=== PATIENT | female | born 1955 | race Caucasian/White ===

== ENCOUNTER → 2019-02-04 08:22 | Outpatient (CLI) | payer OTHER, SELFPAY ==
--- NOTE | 2019-02-04 08:24 | XR_ITS ---
PROCEDURE: XR DEXA AXIAL SKELETON CLINICAL HISTORY: screening COMPARISON: No exams were available for comparison FINDINGS: Lumbar spine (L1 through L4), BMD 1.363 T-score 1.5 Left hip (Total), BMD 0.816, T-score -1.5. IMPRESSION: Osteopenia. Dictated by: Dandre Holliday 02/07/2019 16:46 Electronically signed by Dandre Holliday in [place] 02/07/2019 16:46
== END ==
PROVIDERS: PCP Family Medicine; Visit Provider Obstetrics & Gynecology
DX: Z78.0 Asymptomatic menopausal state (principal)
CPT/HCPCS: 77080

== ENCOUNTER → 2019-12-24 08:17 | Outpatient (CLI) | payer OTHER, SELFPAY ==
--- NOTE | 2019-12-24 08:27 | XR_ITS ---
PROCEDURE: XR FOOT WT BEARING LT 3V CLINICAL INDICATION: Pain in toes bilaterally COMPARISON: CR XR FOOT WT BEARING RT 3V from 12/24/2019 FINDINGS: No fracture or dislocation. No lytic or blastic change. There is normal mineralization. There is mild hallux valgus slight soft tissue prominence over the 1st metatarsal head suggesting a bunion. The tarsal bones metatarsals and phalanges otherwise appear normal. The plantar arch is normal. There is a moderate-sized spur of the calcaneus at the insertion of the plantar tendon. IMPRESSION: Mild hallux valgus with bunion along with calcaneal spur Dictated by: Dr. Rafael Mccall MD 12/24/2019 08:48 Dr. Rafael Mccall MD in [place] 12/24/2019 08:48
--- NOTE | 2019-12-24 08:27 | XR_ITS ---
PROCEDURE: XR FOOT WT BEARING RT 3V CLINICAL INDICATION: PAIN pain in toes bilaterally COMPARISON: Left foot same date FINDINGS: No fracture or dislocation. No lytic or blastic change. There is normal mineralization. There is mild hallux valgus with mild soft tissue prominence over the 1st metatarsal head suggesting a bunion. The tarsal bones metatarsals and phalanges otherwise appear normal. The plantar arch is normal. There is a small spur of the calcaneus at the insertion of the plantar tendon and a tiny spur at the insertion of the Achilles tendon. IMPRESSION: Mild hallux valgus and calcaneal spurs as no Dictated by: Dr. Rafael Mccall MD 12/24/2019 08:50 Dr. Rafael Mccall MD in [place] 12/24/2019 08:50
== END ==
PROVIDERS: PCP Family Medicine; Visit Provider Podiatrist
DX: M21.611 Bunion of right foot (principal); M21.612 Bunion of left foot; M20.11 Hallux valgus (acquired), right foot; M77.41 Metatarsalgia, right foot
CPT/HCPCS: 73630

== ENCOUNTER → 2021-05-31 08:17 | Outpatient (CLI) | payer OTHER, SELFPAY | PROVIDERS: Visit Provider Nurse Practitioner | DX: Z20.822 Contact with and (suspected) exposure to COVID-19 (principal) | CPT/HCPCS: C9803; U0003; U0005 ==

== ENCOUNTER → 2021-10-27 11:14 | Outpatient (CLI) | payer OTHER, SELFPAY | PROVIDERS: PCP Family Medicine; Visit Provider Family Medicine | DX: U07.1 COVID-19 (principal) | CPT/HCPCS: C9803; U0003; U0005 ==

== ENCOUNTER → 2022-02-15 07:57 | Outpatient (CLI) | payer OTHER, SELFPAY ==
--- NOTE | 2022-02-15 08:08 | US_ITS ---
FINAL REPORT CLINICAL HISTORY: RUQ PAIN FINDINGS: Sonographic images of the right upper quadrant were obtained. The pancreas is partially obscured.The liver has an unremarkable appearance. There are gallstones and sludge within the gallbladder. The gallbladder wall is mildly thickened measuring 5 mm. There is no evidence of biliary ductal dilatation.The common duct measures 2 mm. Limited images of the right kidney are unremarkable. IMPRESSION: Gallstones and sludge within the gallbladder with wall thickening, cholecystitis not excluded. Nuclear medicine hepatobiliary scan may be helpful. Reviewed, Interpreted and Dictated by Artis Bañuelos III, MD Transcribed by Shannan Pinto Authenticated and . [facility]
== END ==
PROVIDERS: PCP Family Medicine; Visit Provider Nurse Practitioner Family
DX: R10.11 Right upper quadrant pain (principal)
CPT/HCPCS: 76705

== ENCOUNTER → 2022-03-10 08:05 | Outpatient (CLI) | payer OTHER, SELFPAY ==
[2022-03-10 08:49] LABS: Basophils % 0.6 % (0.1-2.0); Eosinophils # 0.1 K/mm3 (0.0-0.4); Eosinophils % 1.6 % (0.1-12.0); Hematocrit 45.9 % (37.0-47.0); Hemoglobin 14.9 g/dL (12.2-16.2); Lymphocytes # 2.4 K/mm3 (0.7-4.5); Lymphocytes % 34.7 % (10-50); Mean Corpuscular HGB Conc 32.5 g/dL (31.8-35.4); Mean Corpuscular Hemoglobin 34.1 pg (27.0-31.2); Mean Platelet Volume 8.1 fl (7.4-10.4); Monocytes # 0.3 K/mm3 (0.1-1.0); Monocytes % 4.6 % (1.7-9.3); Neutrophils % 58.5 % (37.0-80.0); Platelet Count 611 K/mm3 (142-424); Red Blood Count 4.38 M/mm3 (4.20-5.40); Red Cell Distribution Width 13.5 % (11.5-17.5); White Blood Count 6.8 K/mm3 (4.8-10.8)
[2022-03-10 09:12] LABS: Alanine Aminotransferase 48 U/L (12-78); Albumin Level 4.6 g/dl (3.5-5.0); Albumin/Globulin Ratio 1.6 (1.1-1.8); Alkaline Phosphatase 111 U/L (38-126); Amylase 66 U/L (30-110); Anion Gap 14.8 mEq/L (5-15); Aspartate Amino Transferase 63 U/L (14-36); Bilirubin,Total 1.1 mg/dl (0.2-1.3); Blood Urea Nitrogen 11 mg/dl (7-17); Carbon Dioxide 26 mmol/L (22.0-30.0); Chloride 102 mmol/L (98-107); Estimated Glomerular Filt Rate 84 ml/min (>60); GFR (African American) 102 ML/MIN (>60); Globulin 2.8 g/dL (1.3-3.2); Glucose 72 mg/dl (74-100); Lipase 135 U/L (23-300); Potassium 4.8 mmoL/L (3.5-5.1); Sodium 138 mmol/L (136-145); Total Protein,Serum 7.4 g/dl (6.3-8.2)
== END ==
PROVIDERS: PCP Family Medicine; Visit Provider Surgery
DX: K80.20 Calculus of gallbladder without cholecystitis without obstruction (principal)
CPT/HCPCS: 36415; 80053; 82150; 83690; 85025

== ENCOUNTER 2022-03-14 08:56 | Day surgery (SDC) | payer OTHER, SELFPAY ==
[2022-03-14] VITALS (10 sets, daily range): BP systolic 91–165; BP diastolic 46–94; PULSE 50–119; RESP 16–20; TEMP 36.2–36.5; O2SAT 92–100; BMI 24.4
--- NOTE | 2022-03-14 09:34 | SUR.PREOP ---
Pt progress number given to , Saeed, verbalizes understanding of system.
--- NOTE | 2022-03-14 11:36 | EXP.OP.NOTE ---
Date of procedure: 03/14/22 Pre-op Diagnosis:: Symptomatic gallstones Post-op Diagnosis:: Same Procedure performed:: Laparoscopic cholecystectomy Surgeon:: Artis Sow MD MACHINE FITTER:: Rafael Serrato Anesthesia: EDWARD Estimated blood loss (mL): 20 Clinical Note:: Patient is a pleasant 66-year-old female whom I had seen several years ago for colonoscopy.? Recently, she had developed upper abdominal pain with radiation into her back.? This had occurred in the evening and awoke her from sleep she had a couple of occasions.? She characterizes the pain as sharp.? She had undergone abdominal ultrasound on 02/15/2022.? This reveals findings of gallstones and sludge within the gallbladder with wall thickening, cholecystitis not excluded.? Nuclear medicine hepatobiliary scan may be helpful. Operative findings:: She had a rather distended gallbladder. There were multiple moderately large gallstones. There was some mild hepatomegaly. Operative note:: Patient was taken to the operating room. She was given preoperative intravenous antibiotics. In the operating room she was placed in a supine position. General anesthesia was induced via endotracheal tube. Abdomen was prepped and draped in the standard surgical fashion. Subumbilical skin incision was made and while performing abdominal wall lift Veress needle was inserted. CO2 pneumoperitoneum was achieved to 15 mmHg. 11 mm optical trocar was inserted at the umbilicus. There were some omental adhesions at her umbilicus and inferiorly from prior . She was positioned in reverse Trendelenburg left side down. A couple 5 mm trochars were inserted in the right upper abdomen. 10 mm trocar was inserted in the epigastrium. She was noted to have some mild hepatomegaly. Gallbladder was distended. It was grasped retracted anteriorly and superiorly over the dome of the liver. Infundibulum was grasped and retracted anterior laterally. Prolonged dissection was carried out the neck of the gallbladder bluntly incising the visceral peritoneum. She did have somewhat of a tortuous cystic artery. Ultimately the cystic duct and cystic artery were clearly identified. Cystic duct was multiply clipped and sharply divided. Cystic artery was carefully coagulated with THANIA ultrasonic harmonic ryne and divided. Gallbladder was dissected free from the liver in a retrograde fashion using THANIA ultrasonic harmonic ryne. Gallbladder was placed within an Endo Catch retrieval device and removed from the peritoneal cavity via the umbilical trocar site which required some extension of the fascia and skin incision for delivery of the distended gallbladder with moderately large gallstones. Gallbladder fossa was inspected for hemostasis which was assured. Limited irrigation was performed. Minimal adhesion lysis of the omental adhesions at the umbilicus were taken down using THANIA ultrasonic harmonic ryne to allow for closure. Trochars were then removed as CO2 pneumoperitoneum was evacuated. Fascia at the umbilicus was closed with multiple interrupted 0 Vicryl sutures. Local anesthetic was infiltrated. Skin incision was closed with 4-0 Monocryl subcuticular fashion. Dermabond and dressings were applied. Condition: stable Disposition: PACU Complications:: None immediately apparent
--- NOTE | 2022-03-14 11:44 | EXP.ANES.I ---
[facility] Anesthesia Record Part I Anesthesia Record I Intake, IV Amount: 800 Estimated blood loss (mL): 5 Urine output (mL): 0 Blood Pressure: 133/72 SaO2: 92 Pulse Rate: 72 Respiratory Rate: 16 Temperature: 97.2 F Patient is:: Drowsy Stable to PACU at:: 11:40
--- NOTE | 2022-03-14 12:42 | P.PNANES_ITS ---
[facility] Anesthesia Record Part I Anesthesia Record I Intake, IV Amount: 500 Estimated blood loss (mL): 1 Urine output (mL): 0 Blood Products used (#): none Blood Pressure: 91/46 SaO2: 95 Pulse Rate: 119 Respiratory Rate: 18 Temperature: 97.2 F Patient is:: Drowsy Stable to PACU at:: 12:40
--- NOTE | 2022-03-15 07:43 | EXP.ANES.II ---
[facility] Anesthesia Record Part II Anesthesia Record Part II Discharge Time: 12:10 Destination: Surgical Day Care (OP Surgery) PACU nurse assessment reviewed?: Yes Patient Condition:: Good Anesthesia Complications:: None Swallowing reflex intact?: Yes Cyanosis?: No Blood Pressure: 149/94 Pulse Rate: 63 Temperature: 97.1 F Mental Status: Alert & Oriented Pain level:: 0 Nausea and/or vomitting:: None Intake, IV Amount: 0
[2022-03-15 07:44] VITALS: BP 149/94; PULSE 63; TEMP 36.2
== END 2022-03-14 12:45 | disposition home or self-care (01) ==
PROVIDERS: PCP Family Medicine; Visit Provider Surgery
PROC: 0FT44ZZ Resection of Gallbladder, Percutaneous Endoscopic Approach (ICD-10-PCS; CPT 47562; principal; 2022-03-14 10:30)
DX: Z79.899 Other long term (current) drug therapy; K80.10 Calculus of gallbladder with chronic cholecystitis without obstruction
CPT/HCPCS: 47562; 96374; J2405

== ENCOUNTER 2024-01-24 08:16 | Emergency (ER) | payer BC, SELFPAY ==
[2024-01-24 08:42] VITALS: BP 167/69; PULSE 59; RESP 20; TEMP 36.8; O2SAT 100; BMI 25.0
[2024-01-24 08:50] LABS: Color,Urine Yellow (Yellow)
[2024-01-24 08:51] LABS: Apearance,Urine Clear (Clear); Blood, Urine Trace (Negative); Glucose,Urine (UA) Negative (Negative); Ketones,Urine Negative (Negative); PH,Urine 5.5 (5.0-8.5); Protein,Urine Negative (Negative)
[2024-01-24 08:52] LABS: Bilirubin,Urine Negative (Negative); UTC Leukocyte Esterase,Urine Negative (Negative); UTC Nitrate,Urine Negative (Negative); Urobilinogen,Urine 0.2 EU/dl (0.2)
--- NOTE | 2024-01-24 09:07 | ED_ITS ---
Discharge Plan Disposition Patient Disposition: Home, Self-Care Condition: Good Prescriptions Prescriptions: New cephalexin 500 mg capsule 500 mg PO BID 10 Days Qty: 5 0RF No Action hydroxyurea 500 mg capsule 500 mg PO DAILY Patient Comments: TAKE ONE CAPSULE BY MOUTH EVERY DAY raloxifene 60 mg tablet 60 mg PO DAILY Patient Comments: TAKE ONE TABLET BY MOUTH EVERY DAY Referrals Follow up/Referrals: Matt Ray MD [Primary Care Provider] - See instructions Activity Restrictions/Add. Instructions Additional Instructions/Restrictions: *Increase fluids. Water not Soda or Tea *Start antibiotic immediately and be sure to take as ordered for the FULL length of time although you should start to see improvement over the next 48 hours Be SURE to follow up anytime for new or worsening symptoms with your family doctor. AND in 48 hours for urine culture results with your family doctor, if you do not have a doctor then you may call back to the [facility] for urine culture results and further treatment. We do recommend that you choose and establish care with a Primary Care Physician. ?AND follow up with them ?in 10-14 days to repeat UA to ensure infection is resolved and blood no longer present *Be sure to let your PCP know that we sent urine cultures from the [facility] so they can follow up to ensure that you area the on the correct antibiotic Call your doctor office and make appointment for 48 hours (2 days from today) ?to follow up and get the results of your urine culture and further treatment Clinical Impressions Clinical Impression: UTI symptoms Instructions Patient Instructions: DI for Urinary Tract Infection (UTI) Print Language Print Language: Maori Discharge ED Provider: Simi Mack [facility] HPI General Stated complaint: frequent urination/ thinks UTI Mode of Arrival: Ambulatory Source of Information: Patient Time Seen by Provider: 01/24/24 09:08 Description of Symptoms (Recalled from Triage Doc. by RN): possible UTI, frequent urininating HEENT Symptoms (Recalled from RN notes): No Resp Symptoms (Recalled from RN notes): No Skin Symptoms (Recalled from RN notes): No MS Symptoms (Recalled from RN notes): No Functional Status (Recalled from RN notes): wnl History of Present Illness Provider Complaint: Patient states that she feels like she may have a UTI States that she has been having urinary urgency and frequency and feeling like she does when she has a UTI so today she came in to get checked Related Data Home Medications ?Medication ?Instructions ?Recorded ?Confirmed hydroxyurea 500 mg capsule 500 mg PO DAILY 01/24/24 01/24/24 raloxifene 60 mg tablet 60 mg PO DAILY 01/24/24 01/24/24 Previous Rx's ?Medication ?Instructions ?Recorded cephalexin 500 mg capsule 500 mg PO BID 10 days #5 caps 01/24/24 Allergies Allergy/AdvReac Type Severity Reaction Status Date / Time No Known Allergies Allergy Verified 04/07/22 09:32 Worker's Comp Is this a Worker's Comp case?: No [facility] Disclaimer: The information contained in this section may have been updated after the patient was seen, as this information can be updated by other users. Medical History (Updated 01/24/24 @ 09:19 by Simi Mack APRN) History of COVID-19 History of high platelet count Surgical History (Updated 04/07/22 @ 09:33 by DUYEN Ayoub) History of colonoscopy History of laparoscopic cholecystectomy History of lumpectomy of right breast History of tubal ligation History of section Family History Other Family history of cancer Family history of stroke Social History Smoking Status: Never smoker second hand exposure: No alcohol intake: current alcohol intake frequency: a few times a month substance use type: denies use current occupational status: employed Travel in the last 8 weeks: None household members: spouse housing: house current occupation: [employer] current occupational exposures/hazards: No caffeine: Yes ROS Obtained: Yes All systems reviewed & no additional complaints except as documented and Yes Systems reviewed as appropriate & no additional complaints except as documented Constitutional Constitutional: Reports system reviewed and no additional complaints, except as documented and Reports as per HPI Cardiovascular Cardiovascular: Reports system reviewed and no additional complaints, except as documented and Reports as per HPI Respiratory Respiratory: Reports system reviewed and no additional complaints, except as documented and Reports as per HPI Gastrointestinal Gastrointestingal: Reports system reviewed and no additional complaints, except as documented and as per HPI; Denies abdominal pain Genitourinary Female Genitourinary: Reports system reviewed and no additional complaints, except as documented, Reports as per HPI, Reports urinary frequency and Reports urinary urgency Physical Exam General General appearance: alert and in no apparent distress ENT ENT exam: Present mucous membranes moist Respiratory Respiratory exam: Present normal lung sounds bilaterally; Absent respiratory dis tress or wheezes Cardiovascular Cardiovascular exam: Present regular rate, normal rhythm and normal heart sounds Abdominal Exam Abdominal exam: Present soft and normal bowel sounds; Absent distention or tenderness Neurological Exam Neurological exam: Present alert, oriented X3 and normal gait Medical Decision Making Medical Records Screening: Per USPSTF and CDC recommendations, given the prevalence of disease in our region, it is our hospital?s policy to screen for HIV and viral Hepatitis for all patients aged 18 and over and those with ongoing risk factors. Mason Inquiry Pt receiving controlled substance: No Mason was queried for this patient: No Vital Signs: 01/24/24 08:42 Temperature 98.3 F Temperature Source Oral Pulse Rate [Left Brachial] 59 L Respiratory Rate 20 Blood Pressure [Left Arm] 167/69 H Blood Pressure Mean [Left Arm] 101 02 Sat by Pulse Oximetry 100 Lab Data Lab Results 01/24/24 08:46: Urine Color Yellow, Urine Appearance Clear, Urine pH 5.5, Ur Specific Baird 1.030, Urine Protein Negative, Urine Glucose (UA) Negative, Urine Ketones Negative, Urine Blood Trace, Urine Nitrate Negative, Urine Bilirubin Negative, Urine Urobilinogen 0.2, Ur Leukocyte Esterase Negative
[2024-01-24 09:23] VITALS: BP 167/69; PULSE 59; RESP 20; TEMP 36.8; O2SAT 100
== END 2024-01-24 09:26 | disposition home or self-care (01) ==
PROVIDERS: Emergency Provider Nurse Practitioner; PCP Family Medicine
DX: R39.15 Urgency of urination (principal); R35.0 Frequency of micturition
CPT/HCPCS: 81003; 87086; 99204; 99212; G0463

== ENCOUNTER 2024-02-19 11:11 | Outpatient (CLI) | payer BC, SELFPAY ==
--- NOTE | 2024-02-19 11:16 | CT_ITS ---
FINAL REPORT TECHNIQUE: Pre- and postcontrast images of the abdomen were performed by computed tomography. CLINICAL HISTORY: RUQ PAIN FINDINGS: There is a calcified granuloma at the right lung base. Lung bases are otherwise clear. Gallbladder is surgically absent. There is a 1.3 cm enhancing focus in the posterior right hepatic lobe seen on image 20 of series 5. There are calcified granulomas in the spleen. The spleen is otherwise unremarkable. The adrenals are normal. The pancreas is unremarkable. There is a benign-appearing cyst in the right kidney measuring 1.4 cm. The appendix is normal. Moderate stool is present. IMPRESSION: 1.3 cm enhancing focus in the posterior right hepatic lobe which may represent adenoma, flash filling hemangioma or FNA. Recommend correlation with ultrasound and follow-up contrast-enhanced CT of the abdomen. Moderate stool. Reviewed, Interpreted and Dictated by Michael Parker MD Transcribed by Suzie Elmore Authenticated and [facility]
--- NOTE | 2024-02-19 11:34 | XR_ITS ---
FINAL REPORT CLINICAL HISTORY: CHEST WALL PAIN FINDINGS: 2 views of the chest were obtained . The heart is normal in size. The mediastinum is within normal limits. The lungs are clear. There is no pneumothorax. Osseous structures are unremarkable. IMPRESSION: No acute cardiopulmonary process. Reviewed, Interpreted and Dictated by Michael Parker MD Transcribed by Suzie Elmore Authenticated and [facility]
--- NOTE | 2024-02-19 11:36 | XR_ITS ---
FINAL REPORT CLINICAL HISTORY: .right sided rib pain FINDINGS: RIGHT RIBS 3 views were obtained. There is no acute fracture or dislocation. Visualized joint spaces are normally aligned. There is no pneumothorax. Soft tissues are unremarkable. IMPRESSION: No acute bony abnormality. Reviewed, Interpreted and Dictated by Michael Parker MD Transcribed by Suzie Elmore Authenticated and [facility]
[2024-02-19 11:50] LABS: Blood Urea Nitrogen 12 mg/dl (7-17); Estimated Glomerular Filt Rate 100 ml/min (>60); GFR (African American) 121 ML/MIN (>60)
[2024-02-19] MEDS: SODIUM CHLORIDE 0.9% 10ML SYR (RAD ONLY) 10 ML IV (12:39)
[2024-02-19] MEDS: IOPAMIDOL-370 (76%);100ML BOTTLE 75 ML IV (12:39)
== END 2024-02-19 23:59 | disposition home or self-care (01) ==
LOC: RAD 11:12
PROVIDERS: PCP Family Medicine; Visit Provider Nurse Practitioner Family
DX: R10.11 Right upper quadrant pain (principal); R07.89 Other chest pain
CPT/HCPCS: 36415; 71046; 71111; 74170; 82565; 84520; Q9967

== ENCOUNTER 2025-02-21 06:56 | Outpatient (CLI) | payer BC, SELFPAY ==
--- OUTSIDE RECORDS SUMMARY | 2024-02-19 05:30 | XMS_ITS ---
Author Organization [facility] Address [address] [facility] [address] [place] [id number] Care Team Providers Care Daytime Caregiver Name Role Phone Lisa Mason Primary Care Provider [phone] Alice Ray Unavailable [phone] Ghada Neal Unavailable [phone] Allergies No Known Allergies Results Component Value Reference Range Notes Urinalysis - Inhouse Reviewed date:02/19/2024 12:31:30 PM Interpretation: Performing Lab: Notes/Report: Color/Clarity yellow Leuk neg Nitrite neg Urobili 3.2 Protein neg pH 6.0 Blood trace Sp. Gr. 1.030 Ketone neg Bili neg Gluc neg CBC Venipuncture (in house) Reviewed date:02/19/2024 12:31:04 PM Interpretation: Performing Lab: Notes/Report: wbc 7.3 3.5 - 10 lymph 28.5 15 - 50 mid 6.6 2 - 15 gran 64.9 35 - 80 rbc 3.95 3.5 - 5.5 hgb 12.9 11.5 - 16.5 hct 38.6 35 - 55 mcv 97.8 75 - 100 mch 32.8 25 - 35 mchc 33.5 31 - 38 platlet 434 100 - 400 P-Comprehensive Metabolic Pa maggy (CMP) Reviewed date:02/20/2024 08:58:54 AM Interpretation: Performing Lab: Notes/Report: Test performed by [facility] [address] [facility] , [address], [place] [address] Jethro León MD, Lathe Mechanic CLIA: [id number] Sodium 143 135-145 mmol/L Potassium 4.5 3.5-5.3 mmol/L Chloride 109 97-108 mmol/L CO2 26 22-32 mmol/L Glucose 88 65-99 mg/dL BUN 11 8-23 mg/dL Creatinine 0.84 0.50-1.00 mg/dL Calcium 9.0 8.6-10.4 mg/dL eGFR by Creatinine 76 >59 mL/min/1.73m2 Protein 6.4 6.0-8.3 g/dL Albumin 4.0 3.5-5.3 g/dL Alkaline Phosphatase 92 35-121 IU/L ALT (SGPT) 20 <5-47 IU/L AST (SGOT) 21 <5-40 IU/L Bilirubin, Total 0.4 <0.2-1.2 mg/dL A/G Ratio 1.7 1.1-2.5 P-Culture, Urine Reviewed date:02/21/2024 07:28:43 AM Interpretation:NO GROWTH Performing Lab: Notes/Report: Test performed by [facility] [address] [place] [address] , [address], [place] [address] Jethro León MD, Lathe Mechanic CLIA: [id number] Specimen Source Urine - Void Culture, Urine See Below Final Report : No growth P-Lipid Panel Reviewed date:02/20/2024 08:58:32 AM Interpretation:LDL 85 HDL 84; TG113 Performing Lab: Notes/Report: Test performed by [facility] [address] [place] [address] , [address], [place] [address] Jethro León MD, Lathe Mechanic CLIA: [id number] Cholesterol 192 <200 mg/dL Triglycerides 113 <150 mg/dL HDL Cholesterol 84 >39 mg/dL Cholesterol / HDL Ratio 2.29 0.00-4.44 Ratio Non-HDL Cholesterol 108 <130 mg/dL LDL Cholesterol (Calculation) 85 <130 mg/dL LDL Cholesterol Levels* Less than 100 mg/dL Optimal 100 to 129 mg/dL Near Optimal/ Above Optimal 130 to 159 mg/dL Borderline High 160 to 189 mg/dL High 190 mg/dL and above Very High * Categories as recommended by the 2004 ATPIII guidelines LDL/HDL Ratio 1.0 <3.3 Ratio LDL Cholesterol Patient History Test Date: 02/09/2022 LDL Results: 107 Units: mg/dL % Change: - Test Date: 02/19/2024 LDL Results: 85 Units: mg/dL % Change: -20% P-T4 (Thyroxine) Reviewed date:02/20/2024 08:58:10 AM Interpretation:normal 6.84 Performing Lab: Notes/Report: Test performed by [facility] [address] [place] [address] [place] [address] Jethro León MD, Lathe Mechanic CLIA: [id number] Thyroxine (T4) 6.84 4.50-11.70 ug/dL P-TSH Reviewed date:02/20/2024 08:57:46 AM Interpretation:5.59 Performing Lab: Notes/Report: Test performed by [facility] [address] [place] [address] , [place] [address] Jethro León MD, Lathe Mechanic CLIA: [id number] TSH 5.59 0.43-5.25 mU/L X ray : Rib series, left Reviewed date:02/20/2024 08:48:55 AM Interpretation: Performing Lab: Notes/Report: X ray : Rib series, right Reviewed date:02/20/2024 08:48:43 AM Interpretation:Negative Performing Lab: Notes/Report: Negative CXR Reviewed date:02/20/2024 08:47:59 AM Interpretation: Performing Lab: Notes/Report: REASON FOR VISIT annual check up, Needs labs, mammogram, Tdap, shingles, & flu vaccine Medications Medication SIG (Take, Route, Frequency, Duration) Notes Start Date End Date Status Hydroxyurea 500 MG as directed orally once a day Active medroxyPROGESTERone Acetate 2.5 MG 1 tab(s) orally once a day; Duration: 90 day(s) Active Estradiol 1 MG 1 tab(s) orally once a day; Duration: 90 days Active Raloxifene HCl 60 MG 1 tab(s) orally onc e a day; Duration: 90 days Active Aspirin 81 MG 1 tab(s) orally once a day Active Immunizations Vaccine Route Administration Date Status Comme nts Fluzone High Dose (65yr and older) IM Intramuscular 02/19/2024 Administered Vital Signs Weight 145.8 lbs 02/19/2024 Blood pressure systolic 122 mm Hg 02/19/20 24 Blood pressure diastolic 68 mm Hg 024 Heart Rate 54 /min 02/19/2024 Height 63.50 in 02/19/2024 BMI 25.42 kg/m2 02/19/2024 Encounters Encounter Location Date Provider Diagnosis [facility] [address] [facility] [address] [place] [address] [place] [id number] 02/19/2024 Ghada Neal Fall W19.XXXA ; Ches t wall pain R07.89 ; Acquired hypothyroidism E03.9 ; Dyslipidemia E78.5 ; Right upper quadrant abdominal pain R10.11 ; Urinary frequency R35.0 ; Thrombocythemia D47.3 ; Osteopenia M85.80 and Encounter for immunization Z23 Assessments Encounter Date Diagnosis (ICD Code) Assessment Notes Treatment Notes Treatment Clinical Notes Section Notes 02/19/2024 Fall (ICD-10 - W19.XXXA) 02/19/2024 Chest wall pain (ICD-10 - R07.89) 02/19/2024 Acquired hypothyroidism (ICD-10 - E03.9) 02/19/2024 Dyslipidemia (ICD-10 - E78.5) 02/19/2024 Right upper quadrant abdominal pain (ICD-10 - R10.11) will continue to curtail activities until pain has resolved 02/19/2024 Urinary frequency (ICD-10 - R35.0) good water intake 02/19/2024 Thrombocythemia (ICD-10 - D47.3) 02/19/2024 Osteopenia (ICD-10 - M85.80) 02/19/2024 Encounter for immunization (ICD-10 - Z23) 02/19/2024 Other has had flu vaccine; will get tetanus later and will consider shingles; had mammogram this summer in [facility] was negative Plan Of Treatment Medication Medication Name Sig Start Date Stop Date Notes Raloxifene HCl 60 MG 1 tab(s) orally onc e a day; Duration: 90 days Treatment Notes Assessment Notes Right upper quadrant abdominal pain will continue to curtail activities until pain has resolved Urinary frequency good water intake Other has had flu vaccine; will get tetanus later and will consider shingles; had mammogram this summer in [facility] was negative Pending Test Test Name Order Date CT Scan : Liver with & without IV contra st 02/19/2024 Next Appt Details Follow Up: will notify of te st results, Reason: Provider Name:Ghada warren, 02/24/2025 04:00:00 PM, [address], [address], [place], [place], [id number], Progress Notes * LIANE STARKEYB:1955 (69 yo F)Acc No.[id number]:02/19/2024 Physical Patient: Polo EDBRAYDON KNOXA Provider: HAI Montejo :1955 A ge:68 Y S ex:Female Date:02/19/2024 Address[address], [id number] Pcp:Lisa Mason Subjective: * Chief Complaints: * 1 . Annual check up. 2. Needs labs, mammogram, Tdap, shingles, & flu vaccine. * HPI: H PI: 68 year old female presents with c/o Patient is here today for?annual check up . P ain: Pt sts she was ran into by her daughters dog and had a fall and sts she may have a cracked rib. Pt sts the right rib hurts worse but that it is both she is having trouble with. Pt sts it has been 3 weeks and she is in pain. Pt sts getting in and out of bed is painful and sleeping ; has been unable to perform her usual exercises with swimming and Yogaand jogging. E NT/respiratory: c/o Chest Pain b ilateral ribs. Denies : cough. D enies : Short of Breath. D enies : chest congestion. * ROS: C ARDIOLOGY: no D izziness. n o C hest pain. G ASTROENTEROLOGY: no N ausea. n o V omiting. n o D iarrhea.? U ROLOGY: no D ifficulty urinating. n o B lood in urine. n o F requent urination. * Medical History: T hrombocytosis. * Surgical History: C section 1987, ovarian cyst , lymphs removed from breast , tubal ligation 1995, cholecystectomy 03/2022. * Hospitalization/Major Diagno stic Procedure: s ee above . * Family History: F ather: , Acute leukemia. M other: , cancer. 3 sister(s) . 1 daughter(s) . . Sisters x 2 with breast cancer. * Social History: C URRENT TOBACCO USE S moking Status: Patient does NOT smoke. C affeine: yes, frequency: 2 cups of coffee daily. Marital Status: . Past smoking status: no, Smoking status: Does not smoke. Alcohol: Yes, Type: , Frequency: ,Years: , Determination:, occasional, wine. * Medications: T aking Hydroxyurea 500 MG Capsule as directed orally once a day , Taking Aspirin 81 MG Tablet Delayed Release 1 tab(s) orally once a day , Taking Raloxifene HCl 60 MG Tablet 1 tab(s) orally once a day , Taking medroxyPROGESTERone Acetate 2.5 MG Tablet 1 tab(s) orally once a day , Taking Estradiol 1 MG Tablet 1 tab(s) orally once a day , Medication List reviewed and reconciled with the patient * Allergies: N .K.D.A. Objective: * Vitals: W t:145.8, Temp:97.9, BP:122/68, HR:54, O2 Sat:98% on RA, Nurse:HORACE, Ht: 63.50, BMI:25.42. * Examination: G eneral Examination: General Appearance: N AD Color good; appears well hydrated.?HEENT: sclera and conjunctiva clear, PERRLA, TM's normal, translucent. O ral cavity:? mucosa moist and WNL no erythema. N lauri: supple no lymphadenopathy no carotid bruits thyroid normal. H eart: RRR. L ungs: CTAB A&P. A bdomen: bowel sounds present soft; Ruq TTP; palpable liver; very tender; some tenderness LUQ. N eurologic Exam: alert and oriented. E xtremities: no leg edema. Assessment: * Assessment: 1. F all - W19.XXXA (Primary) 2 . C hest wall pain - R07.89 ?3. A cquired hypothyroidism - E03.9 4 . D yslipidemia - E78.5 ?5. R ight upper quadrant abdominal pain - R10.11 6 . U rinary frequency - R35.0 7 . T hrombocythemia - D47.3 8 . O steopenia - M85.80 9 . E ncounter for immunization - Z23 Plan: * Treatment: ?Imaging: X ray : Rib series, right (Performed Date - 02/19/2024)?Negative* Ghada Neal 02/20/2024 8:48:23 AM > I spoke with pt and reported results ?Imaging: CXR (Performed Date - 02/19/2024)* Ghada Neal 02/20/2024 8:47:41 AM > I spoke with pt and reported results 2.?Acquired hypothyroidism?LAB: P-T4 (Thyroxine) (Collection Date & Time - 02/19/2024 09:45 AM)?normal 6.84* Value Reference Range T hyroxine (T4) 6.84 4.50-11.70 - ug/dL * Ghada Neal 02/20/2024 8:57:55 AM > I spoke with pt and reported results ?LAB: P-TSH (Collection Date & Time - 02/19/2024 09:45 AM)?5.59* Value Reference Range T SH 5.59 H 0.43-5.25 - mU/L * Ghada Neal 02/20/2024 8:53:03 AM > I spoke with pt and reported results 3.?Dyslipidemia?LAB: P-Comprehensive Metabolic Panel (CMP) (Collection Date & Time - 02/19/2024 09:45 AM)* Value Reference Range A /G Ratio 1.7 1.1-2.5 - * A lbumin 4.0 3.5-5.3 - g/dL * A lkaline Phosphatase 92 35-121 - IU/L * A LT (SGPT) 20 <5-47 - IU/L * A ST (SGOT) 21 <5-40 - IU/L * B ilirubin, Total 0.4 <0.2-1.2 - mg/dL * B UN 11 8-23 - mg/dL * C alcium 9.0 8.6-10.4 - mg/dL * C hloride 109 H 97-108 - mmol/L * C O2 26 22-32 - mmol/L * C reatinine 0.84 0.50-1.00 - mg/dL * G lucose 88 65-99 - mg/dL * P otassium 4.5 3.5-5.3 - mmol/L * S odium 143 135-145 - mmol/L * P rotein 6.4 6.0-8.3 - g/dL * e GFR by Creatinine 76 >59 - mL/min/1.73m2 * Ghada Neal 02/20/2024 8:58:40 AM > I spoke with pt and reported results ?LAB: P-Lipid Panel (Collection Date & Time - 02/19/2024 09:45 AM)?LDL 85 HDL 84; TG113* Value Reference Range C holesterol / HDL Ratio 2.29 0.00-4.44 - Ratio * C holesterol 192 <200 - mg/dL * H DL Cholesterol 84 >39 - mg/dL * L DL Cholesterol (Calculation) 85 <130 - mg/d L * L DL/HDL Ratio 1.0 <3.3 - Ratio * N on-HDL Cholesterol 108 <130 - mg/dL * T riglycerides 113 <150 - mg/dL * Ghada Neal 02/20/2024 8:58:17 AM > I spoke with pt and reported results 4.?Right upper quadrant abdominal pain?LAB: P-Comprehensive Metabolic Panel (CMP) (Collection Date & Time - 02/19/2024 09:45 AM)* Value Reference Range A /G Ratio 1.7 1.1-2.5 - * A lbumin 4.0 3.5-5.3 - g/dL * A lkaline Phosphatase 92 35-121 - IU/L * A LT (SGPT) 20 <5-47 - IU/L * A ST (SGOT) 21 <5-40 - IU/L * B ilirubin, Total 0.4 <0.2-1.2 - mg/dL * B UN 11 8-23 - mg/dL * C alcium 9.0 8.6-10.4 - mg/dL * C hloride 109 H 97-108 - mmol/L * C O2 26 22-32 - mmol/L * C reatinine 0.84 0.50-1.00 - mg/dL * G lucose 88 65-99 - mg/dL * P otassium 4.5 3.5-5.3 - mmol/L * S odium 143 135-145 - mmol/L * P rotein 6.4 6.0-8.3 - g/dL * e GFR by Creatinine 76 >59 - mL/min/1.73m2 * Ghada Neal 02/20/2024 8:58:40 AM > I spoke with pt and reported results ?LAB: CBC Venipuncture (in house) (Collection Date & Time - 02/19/2024)* Value Reference Range w bc 7.3 3.5 - 10 * l ymph 28.5 15 - 50 * m id 6.6 2 - 15 * g ran 64.9 35 - 80 * r bc 3.95 3.5 - 5.5 * h gb 12.9 11.5 - 16.5 * h ct 38.6 35 - 55 * m cv 97.8 75 - 100 * m ch 32.8 25 - 35 * m chc 33.5 31 - 38 * p latlet 434 100 - 400 * Christal Rgean 02/19/2024 10:5 0:05 AM > Provider reviewed results while patient in office.Ghdaa Neal 02/19/2024 12:31:02 PM > ?Imaging: CT Scan : Liver with & without IV contrast Notes: will continue to curtail activities until pain has resolved??5.?Urinary frequency?LAB: Urinalysis - Inhouse (Collection Date & Time - 02/19/2024)* Value Reference Range C olor/Clarity yellow * L euk neg * N itrite neg * U robili 3.2 * P rotein neg * p H 6.0 * B lood trace * S p. Gr. 1.030 * K etone neg * B danny neg * G francisco neg * Christal Regan 02/19/2024 10:3 6:38 AM > Provider reviewed results while patient in office.Ghada Neal 02/19/2024 12:31:28 PM > Notes: good water intake??6.?Osteopenia? Refill Raloxifene HCl Tablet, 60 MG, 1 tab(s), orally, once a day, 90 days, 90, Refills 1.? 7.?Others? Notes: has had flu vaccine; will get tetanus later and will consider shingles; [facility] * Immunizations: Fluzone High Dose (65yr and older) : 0.5 mL (Route: Intramuscular) given by HORACE Erickson on Right Deltoid (Encounter for immunization) * Labs: * L ab: P-Culture, Urine (Collection Date & Time - 02/19/2024 09:45 AM) N O GROWTH Value Reference Range C ulture, Urine See Below - * S pecimen Source Urine - Void - * Ghada Neal 02/21/2024 7:28:43 AM > * Procedure Codes: 9 4760 [place], [address] CBC WITH AUTO DIFF, 03455 VENIPUNCT, ROUTINE*, 59281 Urinalysis, no micro * Follow Up: w ill notify of test results * Images: Billing Information: * Visit Code: 75195 Office Visit, Est Pt., Level 4. * Procedure Codes: [address] [place]. [address] CBC WITH AUTO DIFF. 45625 VENIPUNCT, ROUTINE*. 08766 Urinalysis, no micro. * Electronic signature of Geri Neal APRN on 02/21/2025 at 07:01 AM EDT Sign off status: Pending * Provider: HAI Montejo Date: Generated for Griselda morrison/Esequiel/eTransmitting on: 07:01 AM EDT History and Physical Notes * HPI (History of Present Illness) Category Sub-Category Detail Notes Category Not es ENT/respiratory Short of Breath Chest Pain bilateral ribs cough chest congestion HPI Patient is here today for annual check up Pain Pt sts she was ran into by her daughters dog and had a fall and sts she may have a cracked rib. Pt sts the right rib hurts worse but that it is both she is having trouble with. Pt sts it has been 3 weeks and she is in pain. Pt sts getting in and out of bed is painful and sleeping ; has been unable to perform her usual exercises with swimming and Yogaand jogging Examination Category Sub-Category Detail Notes Category Not es General Examination HEENT: sclera and c onjunctiva clear, PERRLA, TM's normal, translucent Heart: RRR Lungs: CTAB A&P Abdomen: bowel sounds present soft; Ruq TTP; palpable liver; very tender; some tenderness LUQ Extremities: no leg edema General Appearance: NAD Color good; appe ars well hydrated Neurologic Exam: alert and oriented Neck: supple no lymphadeno kody no carotid bruits thyroid normal Oral cavity: mucosa moist and WNL no erythema
--- OUTSIDE RECORDS SUMMARY | 2024-10-10 07:45 | XMS_ITS ---
Author Organization [facility] Address [address] [facility] [address] [place] [id number] Care Team Providers Care Expansion Joint Finisher Name Role Phone Lisa Mason Primary Care Provider Alice Ray Unavailable [phone] Edgar Sharp Unavailable [phone] Allergies No Known Allergies REASON FOR VISIT hip Medications Medication SIG (Take, Route, Frequency, Duration) Notes Start Date End Date Status Raloxifene HCl 60 MG 1 tab(s) orally onc e a day; Duration: 90 days Active medroxyPROGESTERone Acetate 2.5 MG 1 tab(s) orally once a day; Duration: 90 day(s) Active Estradiol 1 MG 1 tab(s) orally once a day; Duration: 90 days Active Aspirin 81 MG 1 tab(s) orally once a day Active Hydroxyurea 500 MG as directed orally once a day Active Vital Signs Weight 144.4 lbs 10/10/2024 Blood pressure systolic 130 mm Hg 10/11/19 25 Blood pressure diastolic 72 mm Hg 025 Heart Rate 77 /min 10/10/2024 Height 63.50 in 10/10/2024 BMI 25.18 kg/m2 10/10/2024 Encounters Encounter Location Date Provider Diagnosis [facility] [address] [facility] [address] [place] [phone] 10/10/2024 Edgar Sharp Right hip pain M25.5 51 and BMI 25.0-25.9,adult Z68.25 Assessments Encounter Date Diagnosis (ICD Code) Assessment Notes Treatment Notes Treatment Clinical Notes Section Notes 10/10/2024 Right hip pain (ICD-10 - M25.551) Home exercise program provided to patient 10/10/2024 BMI 25.0-25.9,adult (ICD-10 - Z68.25) Plan Of Treatment Treatment Notes Assessment Notes Right hip pain Home exercise progra m provided to patient Next Appt Details Follow Up: prn, Reason: Provider Name:Ghada Thacker kelvin, 02/24/2025 04:00:00 PM, [address], [address], [place], [place], [id number], Progress Notes * LIANE STARKEYB:1955 (69 yo F)Acc No.[id number]:10/10/2024 Progress Notes Patient: LINDA HUGHES Provider: Jose Sharp M.D. :1955 A ge:69 Y S ex:Female Date:10/10/2024 Address:[address], [facility], [id number] Pcp:Lisa Mason Subjective: * Chief Complaints: * 1 . Hip. * HPI: H ip/Thigh: 69 year old female presents with c/o hip pain P t complains of rt hip pain for 2 days. Pt states she only has pain when walking and turning a certain way .? * ROS: D ERMATOLOGY: no R margarito. n o H curtis. G ASTROENTEROLOGY: no N ausea. n o V omiting. U ROLOGY: no D ifficulty urinating. n o B lood in urine. * Medical History: T hrombocytosis. * Surgical History: C section 1987, Ovarian Cyst , Breast Lymphs Removed , Tubal Ligation 1995, Cholecystectomy 03/2022. * Hospitalization/Major Diagno stic Procedure: D enies Past Hospitalization. * Family History: F ather: , Acute [...] Allergies: N .K.D.A. Objective: * Vitals: W t: 144.4, Temp: 98.0, BP: 130/72, HR: 77, Nurse: carlo, Ht: 63.50, BMI:25.18. * Examination: G eneral Examination: General Appearance: N AD. H ip / Thigh: Hip joint: r ight. P alpation: t enderness on trochanteric bursa. R alejandra of motion: n ormal flexion, extension & rotation. G ait: n ormal. Assessment: * Assessment: 1. R ight hip pain - M25.551 (Primary) 2 . B HI 25.0-25.9,adult - Z68.25? Plan: * Treatment: * Procedure Codes: 1 036F TOBACCO NON-USER, G8420 BMI<30 AND >=22 CALC & DOCU, G8783 BP SCR PRFRM RCMDD DEFIND SCR INTVL, G8752 MOST RECENT SYSTOLIC BP < 140MM HG, G8754 MOST RECENT DIASTOLIC BP < 90MM HG * Follow Up: p rn * Images: Billing Information: * Visit Code: 94097 Office Visit, Est Pt., Level 3. * Procedure Codes: 1036F TOBACCO NON-USER. G8420 BMI<30 AND >=22 CALC & DOCU. G8783 BP SCR PRFRM RCMDD DEFIND SCR INTVL. G8752 MOST RECENT SYSTOLIC BP < 140MM HG. G8754 MOST RECENT DIASTOLIC BP < 90MM HG. * Electronic signature of Trisha Sharp MD on 02/21/2025 at 07:01 AM EDT Sign off status: Pending * Provider: Jose Sharp M.D. Date: 0 10/10/2024 Generated for Griselda morrison/Esequiel/Antonino on: 1 07:01 AM EDT History and Physical Notes * HPI (History of Present Illness) Category Sub-Category Detail Notes Category Not es Hip/Thigh hip pain Pt complains of rt hip pain for 2 days. Pt states she only has pain when walking and turning a certain way Examination Category Sub-Category Detail Notes Category Not es General Examination General Appearance: NAD Hip / Thigh Gait: normal Range of motion: normal flexion, exte nsion & rotation Hip joint: right Palpation: tenderness on trocha nteric bursa
--- OUTSIDE RECORDS SUMMARY | 2025-02-19 04:26 | XMS_ITS ---
Author Organization [facility] Address [address] [facility] [address] [place] [id number] Care Team Providers Care Bun Panner Name Role Phone Lisa Mason Primary Care Provider Alice Ray Unavailable [phone] Ghada Neal Unavailable [phone] REASON FOR VISIT Lab Order Encounters Encounter Location Date Provider Diagnosis [facility] [address] [facility] [address] [place] [id number] 02/19/2025 Ghada Neal Hyperlipidemia 272.4 ; Acquired hypothyroidism E03.9 ; Essential hypertension I10 and Dyslipidemia E78.5 Assessments Encounter Date Diagnosis (ICD Code) Assessment Notes Treatment Notes Treatment Clinical Notes Section Notes 02/19/2025 Hyperlipidemia (ICD9-CM - 272.4) 02/19/2025 Acquired hypothyroidism (ICD-10 - E03.9) 02/19/2025 Essential hypertension (ICD-10 - I10) 02/19/2025 Dyslipidemia (ICD-10 - E78.5) Plan Of Treatment Pending Test Test Name Order Date H-TSH 02/19/2025 H-CBC 02/19/2025 H-Microalbumine/Creatinine 02/19/2025 H-Lipid Panel 02/19/2025 H-CMP 02/19/2025 H-T4 (Thyroxine) 02/19/2025 Next Appt Details Provider Name:Ghada warren, 02/24/2025 04:00:00 PM, [address], [place], [place], [id number], Progress Notes * BRAYDON TAVERARANDIB:1955 (69 yo F)Acc No.[id number]:02/19/2025 Patient: LINDA HUGHES :1955 A ge:69 Y S ex:Female Address:[address], [place] [address] Subjective: * Chief Complaints: * L ab Order * Medical History: * Surgical History: * Hospitalization/Major Diagno stic Procedure: * Medications: Objective: * Vitals: * Physical Examination: Assessment: * Assessment: 1. H yperlipidemia - 272.4 2 . A cquired hypothyroidism - E03.9 ?3. E ssential hypertension - I10 4 . D yslipidemia - E78.5 ? Plan: * Treatment: 2. A cquired hypothyroidism L AB: H-TSH L AB: H-T4 (Thyroxine) 3. E ssential hypertension L AB: H-CBC L AB: H-Microalbumine/Creatinine L AB: H-CMP * Procedure Codes: * true * Date: Generated for Griselda morrison/Esequiel/eTransmitting on: 1 07:00 AM EDT
--- OUTSIDE RECORDS SUMMARY | 2025-02-21 07:01 | XMS_ITS | Encounter Summary ---
Author Organization [facility] Address [address] [id number] Care Team Providers Care Strike Operations Officer Name Role Phone Moreno Mason MD Primary Care Provider [phone] Reason for Visit * Reason Comments Med Refill Encounter Details Date Type Department Care Team ([facility] Contact Info) Description 11/15/2020 Refill [facility] Hematology/BMT and Cellular Therapy Program [address] [place] [address] Corey Perdomo MD [address] [facility] [address] [place] [phone] Social History Tobacco Use Types Packs/Day Years Used Date Smoking Tobacco: Never Smokeless Tobacco: Never Alcohol Use Standard Drinks/Week Comments Yes 0 (1 standard drink = 0.6 oz pur e alcohol) Socially PHQ-2 Answer Date Recorded Patient Health Questionnaire-2 Score 0 10/29/2020 Comments Unknown Sex and Gender Information Value Date Recorded Sex Assigned at Not on file Legal Sex Female 8:54 PM EDT Gender Identity Not on file Sexual Orientation Not on file COVID-19 Exposure Response Date Recorded In the last month, have you been in contact with someone who was confirmed or suspected to have Coronavirus / COVID-19? No / Unsure 10/29/2020 9:51 AM EDT documented as of this encounter Plan of Treatment Upcoming Encounters Date Type Department Care Team ([facility] Contact Info) Description 06/16/2025 3:00 PM EST Clinical Support [facility] Hematology/BMT and Cellular Therapy Program [address] [place] [address] 06/16/2025 3:30 PM EST Office Visit [facility] Hematology/BMT and Cellular Therapy Program 750 [facility] [place] [phone] Claire Gibson, RAVEN [address] [facility] [address] [place] [address] documented as of this encounter Visit Diagnoses Not on filedocumented in this encounter Additional Health Concerns Assessment Noted Time A fall risk assessment has been complete d for the patient 10/29/2020 10:02 AM EDT documented as of this encounter Care Teams Strike Operations Officer Relationship Specialty Start Date End Date Moreno Mason MD [address] [place] [id number] PCP - General 09/18/20 documented as of this encounter
--- OUTSIDE RECORDS SUMMARY | 2025-02-21 07:01 | XMS_ITS | Clinical Summary ---
Author Organization [facility] Address [address] [place] [address] Care Team Providers Care Automatic Dispenser Mechanic Name Role Phone Moreno Mason MD Primary Care Provider [phone] Allergies No known active allergies Medications ASPIRIN 81 PO Take 81 mg by mouth every other day. Active raloxifene (Evista) 60 MG tablet Take 1 tablet (60 mg) by mouth 1 (one) time each day. Active ascorbic acid (vitamin C) 100 MG tablet Take 1 tablet (100 mg) by mouth 1 (one) time each day. Active zinc gluconate 50 MG tablet Take 1 tablet (50 mg) by mouth 1 (one) time each day. Active Multiple Vitamin (multivitamin) tablet Take 1 tablet by mouth 1 (one) time each day. Active hydroxyurea (Hydrea) 500 MG capsule Take 1 capsule (500 mg total) by mouth 1 (one) time each day. 30 capsule 11 03/12/2024 Active Active Problems Problem Noted Date Diagnosed Date Abscess of axilla 12/13/2024 Epidermoid cyst of skin 12/13/2024 Dyslipidemia 12/13/2024 Bronchitis 12/13/2024 Acquired hypothyroidism 12/13/2024 Pure hypercholesterolemia 12/13/2024 Osteopenia 12/13/2024 Hyperthyroidism 12/13/2024 Hyperlipidemia 12/13/2024 Essential hypertension 12/13/2024 Thrombocythemia 12/13/2024 Encounters Date Type Department Care Team Description 12/13/2024 2:00 PM EDT Office Visit [facility] Hematology/BMT and Cellular Therapy Program [address] [place] [address] Antonio Hendrickson MD Essential thrombocytosis 12/13/2024 1:30 PM EDT Clinical Support [facility] Hematology/BMT and Cellular Therapy Program 750 [facility] [place] [place] [phone] Antonette Martínez 12/13/2024 Travel 12/12/2024 Orders Only [facility] Hematology/BMT and Cellular Therapy Program 750 [facility] [place] [place] [phone] Belinda Pinto RN Essential thrombocytosis (Primary Dx) 12/11/2024 Travel from Last 3 Months Family History Medical History Relation Name Comments Leukemia Father Family history of leukemia Breast cancer Sister 1 Negar Adriana Family history of malignant neoplasm of breast Cancer Sister 1 Negar Adriana Cancer Sister 2 Blanca Lin Relation Name Status Comments Father Sister 1 Negar Adriana Sister 2 Blanca Lin Social History Tobacco Use Types Packs/Day Years Used Date Smoking Tobacco: Never Smokeless Tobacco: Never Tobacco Cessation:Counseling Given: Not Answered Alcohol Use Standard Drinks/Week Comments Yes 2 (1 standard drink = 0.6 oz pur e alcohol) Socially PHQ-2 Answer Date Recorded Patient Health Questionnaire-2 Score 0 12/13/2024 Comments Unknown Sex and Gender Information Value Date Recorded Sex Assigned at Not on file Legal Sex Female 8:54 PM EDT Gender Identity Not on file Sexual Orientation Not on file Last Filed Vital Signs Vital Sign Reading Time Taken Comments Blood Pressure 144/73 12/13/2024 1:39 PM EDT Pulse 52 12/13/2024 1:34 PM EDT Temperature 36.5 C (97.7 F) 12/13/2024 1:34 PM EDT Respiratory Rate 16 05/30/2024 8:55 AM EST Oxygen Saturation 100% 12/13/2024 1:34 PM EDT Inhaled Oxygen Concentration - - Weight 64.7 kg (142 lb 10.2 oz) 12/13/2024 1:34 PM EDT Height 160 cm (5' 3 ) 12/13/2024 1:34 PM EDT Body Mass Index 25.27 12/13/2024 1:34 PM EDT Plan of Treatment Upcoming Encounters Date Type Department Care Team ([facility] Contact Info) Description 06/16/2025 3:00 PM EST Clinical Support [facility] Hematology/BMT and Cellular Therapy Program 750 [facility] [place] [address] 06/16/2025 3:30 PM EST Office Visit [facility] Hematology/BMT and Cellular Therapy Program 750 [facility], [address] [place] [phone] Claire Gibson, PA [address] [facility] [address] [place] [address] Health Maintenance Due Date Last Done Comments [facility]-Bone Density Scan 1955 [facility]-Hepatitis C Screening 1955 [facility]-Infant/Child/Adol SDOH Screenings 1955 [facility]-Obesity Intervention 1963 [facility]- SDOH Screenings 1975 [facility]-Adult SDOH Screenings 1975 [facility]-DTaP,Tdap,and Td Vaccines (1 - Tdap) 1976 [facility]-Pneumococcal Vaccine: 50+ Years (1 of 2 - PCV) 1976 [facility]-Zoster Vaccines (1 of 2) 1976 CT Colonography 2002 Colonoscopy 2002 FIT-DNA 2002 FIT 2002 FOBT 2002 Sigmoidoscopy 2002 [facility]-Colorectal Cancer Screening 2002 [facility]-RSV Vaccine: 60+ Years or (1 - Risk 60-74 years 1-dose series) 2017 [id number]-85 Vaccine (6 - Pfizer risk 2023- season) 2025 01/20/2024, 04/07/2022, 03/23/2021, Additional history exists [facility]-Influenza Vaccine (#1) 01/06/202503/23, 02/15/2021, 02/12/2020, Additional history exists [facility]-Depression Screening 12/13/2025 12/13/2024 [facility]-Breast Cancer Screening 11/06/2026 07/0 06/2024, 11/06/2024, 10/25/2023, Additional history exists HPV Vaccines Aged Out No longer eligi ble based on patient's age to complete this topic [facility]-HIB Vaccines Aged Out No longer e ligible based on patient's age to complete this topic [facility]-Hepatitis A Vaccines Aged Out No longer eligible based on patient's age to complete this topic [facility]-IPV Vaccines Aged Out No longer e ligible based on patient's age to complete this topic [facility]-Rotavirus Vaccines Aged Out No lo nger eligible based on patient's age to complete this topic Procedures Procedure Name Priority Date/Time Associated Diagnosis Comments COMPREHENSIVE METABOLIC PANEL, PLASMA Routine 12/13/2024 1:25 PM EDT Essential thrombocytosis CBC WITH AUTO DIFFERENTIAL Routine 12/13/2024 1:25 PM EDT Essential thrombocytosis from Last 3 Months Results * (ABNORMAL) CBC and Differential (12/13/2024 1:25 PM EDT) WBC Count 8.29 3.70 - 10.30 10*3/uL LAB HEMATOLOGY METHOD 12/13/2024 1:39 PM EDT [facility] RBC Count 4.12 3.90 - 5.20 10*6/uL LAB HEMATOLOGY METHOD 12/13/2024 1:39 PM EDT [facility] HGB 13.3 11.2 - 15.7 g/dL LAB HEMATOLOGY METHOD 12/13/2024 1:39 PM EDT [facility] HCT 40.9 34.0 - 45.0 % LAB HEMATOLOGY METHOD 12/13/2024 1:39 PM EDT [facility] Platelet Count 388(H) 155 - 369 10*3/uL LAB HEMATOLOGY METHOD 12/13/2024 1:39 PM EDT [facility] MCV 99(H) 79 - 98 fL LAB HEMATOLOGY METHOD 12/13/2024 1:39 PM EDT [facility] MCH 32.3(H) 26.0 - 32.0 pg LAB HEMATOLOGY METHOD 12/13/2024 1:39 PM EDT [facility] MCHC 32.5 30.7 - 35.5 g/dL LAB HEMATOLOGY METHOD 12/13/2024 1:39 PM EDT [facility] RDW 13.6 11.5 - 14.5 % LAB HEMATOLOGY METHOD 12/13/2024 1:39 PM EDT [facility] MPV 9.1 8.8 - 12.5 fL LAB HEMATOLOGY METHOD 12/13/2024 1:39 PM EDT [facility] nRBC 0.0 <=0.0 per 100 WBCs LAB HEMATOLOGY METHOD 12/13/2024 1:39 PM EDT [facility] Differential Type Automated LAB HEMATOLOGY METHOD 12/13/2024 1:39 PM EDT [facility] Neutrophils % 57 % LAB HEMATOLOGY METHOD 12/13/2024 1:39 PM EDT [facility] Lymphocytes % 32 % LAB HEMATOLOGY METHOD 12/13/2024 1:39 PM EDT [facility] Monocytes % 9 % LAB HEMATOLOGY METHOD 12/13/2024 1:39 PM EDT [facility] Eosinophils % 1 % LAB HEMATOLOGY METHOD 12/13/2024 1:39 PM EDT [facility] Basophils % 1 % LAB HEMATOLOGY METHOD 12/13/2024 1:39 PM EDT [facility] Immature Granulocytes % 0 % LAB HEMATOLOGY METHOD 12/13/2024 1:39 PM EDT [facility] Neutrophils Absolute 4.71 1.60 - 6.10 10*3/uL LAB HEMATOLOGY METHOD 12/13/2024 1:39 PM EDT [facility] Lymphocytes Absolute 2.64 1.20 - 3.90 10*3/uL LAB HEMATOLOGY METHOD 12/13/2024 1:39 PM EDT [facility] Monocytes Absolute 0.77 0.30 - 0.90 10*3/uL LAB HEMATOLOGY METHOD 12/13/2024 1:39 PM EDT [facility] Eosinophils Absolute 0.10 0.00 - 0.50 10*3/uL LAB HEMATOLOGY METHOD 12/13/2024 1:39 PM EDT [facility] Basophils Absolute 0.04 0.00 - 0.10 10*3/uL LAB HEMATOLOGY METHOD 12/13/2024 1:39 PM EDT [facility] Immature Granulocytes Absolute 0.03 0.00 - 0.06 10*3/uL LAB HEMATOLOGY METHOD 12/13/2024 1:39 PM EDT [facility] Blood Venous blood specimen / Unknown Venipuncture / Unknown 12/13/2024 1:25 PM EDT 12/13/2024 1:37 PM EDT Narrative [facility] - 12/13/2024 1:39 PM EDT Therapeutic decision making should be based on absolute values, rather than percentages. us Antonio Hendrickson MD LAB BLOOD ORDERABLES Final Resul t [facility] [address] [place] [address] * (ABNORMAL) Comprehensive Metabolic Panel, Plasma (12/13/2024 1:25 PM EDT) Glucose, Plasma 85 74 - 99 mg/dL 12/13/2024 2:19 PM EDT [facility] BUN, Plasma 15 8 - 23 mg/dL 12/13/2024 2:19 PM EDT [facility] Creatinine, Plasma 0.67 0.60 - 1.10 mg/dL 12/13/2024 2:19 PM EDT [facility] BUN/Creatinine Ratio 22 12/13/2024 2:19 PM EDT [facility] Sodium, Plasma 140 136 - 145 mmol/L 12/13/2024 2:19 PM EDT [facility] Potassium, Plasma 5.1(H) 3.6 - 4.9 mmol/L 12/13/2024 2:19 PM EDT [facility] Chloride, Plasma 108(H) 97 - 107 mmol/L 12/13/2024 2:19 PM EDT [facility] CO2, Plasma 21(L) 22 - 29 mmol/L 12/13/2024 2:19 PM EDT [facility] Anion Gap 11 6 - 16 mmol/L 12/13/2024 2:19 PM EDT [facility] Total Calcium, Plasma 9.4 8.9 - 10.2 mg/dL 12/13/2024 2:19 PM EDT [facility] Total Protein 7.0 6.3 - 7.9 g/dL 12/13/2024 2:19 PM EDT [facility] Albumin, Plasma 4.2 3.5 - 5.2 g/dL 12/13/2024 2:19 PM EDT [facility] AST, Plasma 31 10 - 35 U/L 12/13/2024 2:19 PM EDT [facility] Comment:Hemolyzed, result ma y be falsely increased. ALT, Plasma 21 10 - 35 U/L 12/13/2024 2:19 PM EDT [facility] Alkaline Phosphatase, Plasma 78 46 - 142 U/L 12/13/2024 2:19 PM EDT [facility] Total Bilirubin, Plasma 0.6 0.2 - 1.1 mg/dL 12/13/2024 2:19 PM EDT [facility] eGFRcr 95.9 mL/min/1.7 3m*2 12/13/2024 2:19 PM EDT [facility] Comment:Reported eGFRcr in m L/min/1.73m2 is based the CKD-EPI 2020 equation that does not use a race coefficient. Blood Venous blood specimen / Unknown Venipuncture / Unknown 12/13/2024 1:25 PM EDT 12/13/2024 1:46 PM EDT us Hiffsa Ira Hendrickson MD LAB BLOOD ORDERABLES Final Resul t [facility] [address] [place] [address] from Last 3 Months Insurance [facility] Care Teams Automatic Dispenser Mechanic Relationship Specialty Start Date End Date Moreno Mason MD [address] [place] [address] PCP - General 09/18/20
--- OUTSIDE RECORDS SUMMARY | 2025-02-21 07:01 | XMS_ITS | Patient Health Record ---
Author Organization [facility] Address [address] [facility] [address] [place] [id number] Care Team Providers Care Sand Car Worker Name Role Phone Lisa Mason Primary Care Provider [phone] Alice Ray Unavailable [phone] Edgar Sharp Unavailable [phone] Ghada Neal Unavailable [phone] Allergies No Known Allergies Medications Medication SIG (Take, Route, Frequency, Duration) Notes Start Date End Date Status medroxyPROGESTERone Acetate 2.5 MG 1 tab(s) orally once a day; Duration: 90 day(s) Active Estradiol 1 MG 1 tab(s) orally once a day; Duration: 90 days Active Raloxifene HCl 60 MG 1 tab(s) orally onc e a day; Duration: 90 days Active Aspirin 81 MG 1 tab(s) orally once a day Active Hydroxyurea 500 MG as directed orally once a day Active Immunizations Vaccine Route Administration Date Status Comme nts xFluzone Intradermal (18-64yrs)-trivalent Unknown 02/15/2021 Administered Fluzone Quad-Medicare (6months&older) IM Intramuscular 01/29/2019 Administered Fluzone Quad (6months&older) Unknown 01/29/2019 Administered Fluzone Quad (6months&older) IM Intramuscular 02/12/2020 Administered Fluzone Quad (6months&older) IM Intramuscular 02/09/2022 Pending Fluzone Intradermal Quad private(18-64yrs) IM Intramuscular 02/15/2021 Administered Fluzone High Dose (65yr and older) IM Intramuscular 03/14/2023 Administered Fluzone High Dose (65yr and older) IM Intramuscular 02/19/2024 Administered COVID 19 Pfizer Unknown 07/09/2020 Administered COVID 19 Pfizer Unknown 07/31/2020 Administered COVID 19 Pfizer Unknown 03/23/2021 Administered Problems Problem Type SNOMED Code ICD Code Onset Dates Problem Status W/U Status Risk Notes Problem Hyperthyroidism (18176123) Hyperthyroidism NOS, without mention of crisis or storm (242.90) Active confirmed Problem Osteopenia (829026152) Osteopenia (733.90) Active confirmed Problem Hyperlipidemia (58941414) Hyperlipidemia (272.4) Active confirmed Problem Essential hypertension (23690798) Essential hypertension (I10) Active confirmed Problem Abscess of axilla (40758267) Cutaneous abscess of left axilla (L02.412) Active confirmed Problem Acquired hypothyroidism (472342053) Acquired hypothyroidism (E03.9) Active confirmed Problem Bronchitis (90319359) Bronchitis (J40) Active c onfirmed Problem Epidermoid cyst of skin (855063181) Sebaceous cyst of left axilla (L72.3) Active confirmed Problem Dyslipidemia (922647967) Dyslipidemia (E78.5) Active confirmed Problem Thrombocythemia (7656931) Thrombocythemia (D47.3) Active confirmed Problem Pure hypercholesterolemia (431228788) Pure hypercholesterolemia (E78.00) Active confirmed Vital Signs Heart Rate 77 /min 10/10/2024 Blood pressure diastolic 72 mm Hg 10/10/2024 Height 63.50 in 10/10/2024 Blood pressure systolic 130 mm Hg 10/10/2024 Weight 144.4 lbs 10/10/2024 BMI 25.18 kg/m2 10/10/2024 Encounters Encounter Location Date Provider Diagnosis [facility] [address] [place], [place] [id number] 10/10/2024 Edgar Kountze Right hip pain M25.5 51 and BMI 25.0-25.9,adult Z68.25 [facility] [address] [place], [place] [id number] 10/21/2024 Lisa Mason [facility] [address] [place], [place] [phone] 02/19/2025 Ghada Neal Hyperlipidemia 272.4 ; Acquired hypothyroidism E03.9 ; Essential hypertension I10 and Dyslipidemia E78.5 Assessments Encounter Date Diagnosis (ICD Code) Assessment Notes Treatment Notes Treatment Clinical Notes Section Notes 02/19/2025 Hyperlipidemia (ICD9-CM - 272.4) 10/10/2024 BMI 25.0-25.9,adult (ICD-10 - Z68.25) 10/10/2024 Right hip pain (ICD-10 - M25.551) Home exercise program provided to patient 02/19/2025 Acquired hypothyroidism (ICD-10 - E03.9) 02/19/2025 Essential hypertension (ICD-10 - I10) 02/19/2025 Dyslipidemia (ICD-10 - E78.5) Plan Of Treatment Pending Test Test Name Order Date CT Scan : Liver with & without IV contra st 02/19/2024 H-TSH 02/19/2025 H-CBC 02/19/2025 H-Microalbumine/Creatinine 02/19/2025 H-Lipid Panel 02/19/2025 H-CMP 02/19/2025 H-T4 (Thyroxine) 02/19/2025 Next Appt Details Provider Name:Ghada warren, 02/24/2025 04:00:00 PM, [address] [facility], [address], [place], [place], [id number], Insurance Providers Payer Name Payer Address Payer Phone Subscriber Number Group Number Insured Name Patient Relationship to Insured Coverage Start Date Coverage End Date [employer] [address] [place] [address] [id number] LINDA JEROME Self - patient is the insured Medical (General) History Medical History History ICD Code Thrombocytosis Surgical History Surgery Date(Month/Year) C section 1988 Ovarian Cyst Breast Lymphs Removed Tubal Ligation 1995 Cholecystectomy 03/2022 Hospitalization History Reason Date(Month/Year)
--- OUTSIDE RECORDS SUMMARY | 2025-02-21 07:01 | XMS_ITS | Encounter Summary ---
Author Organization [employer] ([place], [place], [place], [place]) Address [address] [place] [address] Care Team Providers Care Attendant Child Activity Name Role Phone Moreno Mason MD Primary Care Provider [phone] Moreno Mason MD Primary Care Provider [phone] [phone] Reason for Referral * Mammography (Routine) - Closed Specialty Diagnoses / Procedures Referred By Contac t Referred To Contact Diagnoses Encounter for screening mammogram for malignant neoplasm of breast Procedures MM digital mammo screen with kaylyn bilateral Moreno Mason MD [address] [place] [address] Phone: tel: fax: Referral ID Status Reason Start Date Expiration Date Visits Re quested Visits Authorized [id number] Closed 09/30/2022 03/29/2023 1 1 Encounter Details Date Type Department Care Team (Late st Contact Info) Description 09/30/2022 Outside Orders [facility] Sched[facility] [address] [place] [phone] Moreno Mason MD [address] [place] [address] Encounter for screening mammogram for malignant neoplasm of breast (Primary Dx) Social History Tobacco Use Types Packs/Day Years Used Date Smoking Tobacco: Never Assessed Comments Unknown Sex and Gender Information Value Date Recorded Sex Assigned at Female 11/02/2021 1:29 PM CDT Legal Sex Female 1:29 PM CDT Gender Identity Female 11/02/2021 1:29 PM CDT Sexual Orientation Not on file documented as of this encounter Plan of Treatment Upcoming Encounters Date Type Department Care Team (Late st Contact Info) Description 11/11/2025 7:45 AM EDT Appointment [address] [place] [phone] documented as of this encounter Results * (ABNORMAL) MM digital mammo screen with kaylyn bilateral (10/21/2022 8:12 AM EDT) Anatomical Region Laterality Modality Breast Bilateral Mammography 10/21/2022 9:32 AM EDT Impressions 10/21/2022 9:49 AM EDT FINAL IMPRESSION: ACR BI-RADS 0: Incomplete: Needs additional imaging evaluation. This report will serve as an order for the imaging studies listed below. RECOMMENDATIONS: Bilateral Limited breast ultrasound. A letter including results and recommendations was sent to the patient. Density notification was provided to patients with type 3 or 4 breast tissue pattern. Patient information entered into a reminder system with a target due date for the next mammogram. At our facility, a [place] marker is positioned over a visible skin lesion and a linear marker is used to indicate a scar. A triangular marker is placed on a self reported palpable finding. Note: Mammography does not detect approximately 10-15% of breast cancers. An annual clinical breast exam by the patient's breast care physician and regular monthly self breast exams by the patient are integral parts of breast cancer screening, in addition to annual mammography. A normal mammogram does not completely exclude the presence of breast cancer, especially if there is an abnormal finding on physical exam. When clinically indicated, a biopsy should not be deferred because of a normal mammogram report. cc: Narrative 10/21/2022 9:49 AM EDT PROCEDURE: Bilateral digital screening mammogram with tomosynthesis. REASON FOR EXAM: Routine screening. FAMILY HISTORY: There is strong family history of breast cancer. COMPARISON STUDY: [facility] [id number] mammograms as well as 2019 bilateral breast MR FINDINGS: Craniocaudal and mediolateral oblique images of both breasts were obtained in 2D, C-view, and 3D modes. The breast tissue has pattern b (scattered fibroglandular densities). Bilateral stable punctate and coarse calcifications are present. A new low density mass measuring 10 mm is identified in the left upper outer quadrant. It will be characterized further with ultrasound. A nodular density measuring 5 mm is present posterior to the clip at 9 to 10:00 position in the right breast. In 2018 MR guided biopsy was performed in this location. On 2020 and 2019 20 mammograms the pledget surrounding the clip was still visible. It has dissolved in the interval time likely allowing visualization of the original small mass. This area will be re-investigated with ultrasound as well. This examination was reviewed with the benefit of computer-aided detection (CAD). us Moreno Mason MD IMG MAMMOGRAPHY ORDERABLE S Final Result documented in this encounter Visit Diagnoses Diagnosis Encounter for screening mammogram for malignant neoplasm of breast- Primary Encounter for screening mammogram for malignant neoplasm of breast documented in this encounter Care Teams Attendant Child Activity Relationship Specialty Start Date End Date Moreno Mason MD [address] [facility] [address] [place] [address] PCP - General Family Medicine 09/30/22 10/01/23 Moreno Mason MD [address] [place] [facility] [address] [place] [address] PCP - General Family Medicine 11/06/24 documented as of this encounter
--- OUTSIDE RECORDS SUMMARY | 2025-02-21 07:02 | XMS_ITS | Encounter Summary ---
Author Organization [employer] ([place], [place], [place], [place]) Address [address] [place] [address] Care Team Providers Care Bioinformatics Computer Scientist Name Role Phone Moreno Mason MD Primary Care Provider [phone] Reason for Referral * Mammography (Routine) - Authorized Specialty Diagnoses / Procedures Referred By Contac t Referred To Contact Radiology Diagnoses Visit for screening mammogram Procedures MM digital mammo screen with kaylyn bilateral Moreno Mason MD [address] [place] [address] Phone: tel: fax: [facility] [address] [place] [address] Phone: tel: fax: Referral ID Status Reason Start Date Expiration Date V isits Requested Visits Authorized [id number] Authorized 11/11/2025 11/11/2026 1 1 Encounter Details Date Type Department Care Team (Late st Contact Info) Description 11/06/2024 Outside Orders [facility] [address] [place] [address] Moreno Mason MD [address] [facility] [address] [place] [address] Visit for screening mammogram (Primary Dx) Social History Tobacco Use Types Packs/Day Years Used Date Smoking Tobacco: Never Assessed Employment Answer Date Recorded Help finding and keeping a job Not on file 0 05/26/2023 Family and Community Support Answer Rafi e Recorded Help with Day to Day Activities Not on file 05/26/2023 Feeling Lonely or Isolated Not on file 05/26 Educational Attainment Answer Date Johny rded Speak language other than Guamanian at home Not on file 05/26/2023 Want help with school or training Not on file 05/26/2023 Substance Use Answer Date Recorded Used prescription meds for non-medical reasons N ot on file 05/26/2023 Used illegal drugs past 12 months Not on file 05/26/2023 Comments No Sex and Gender Information Value Date Recorded Sex Assigned at Female 11/02/2021 1:29 PM CDT Legal Sex Female 1:29 PM CDT Gender Identity Female 11/02/2021 1:29 PM CDT Sexual Orientation Not on file documented as of this encounter Plan of Treatment Upcoming Encounters Date Type Department Care Team (Late st Contact Info) Description 11/11/2025 7:45 AM EDT Appointment [address] [place] [phone] Scheduled Orders Name Type Priority Associated Diagnoses Orde r Schedule MM digital mammo screen with kaylyn bilateral Imaging Routine Visit for screening mammogram Expected: 11/11/2025, Expires: 11/11/2026 documented as of this encounter Visit Diagnoses Diagnosis Visit for screening mammogram- Primary documented in this encounter Care Teams Bioinformatics Computer Scientist Relationship Specialty Start Date End Date Moreno Mason MD [address] [facility] [address] [place] [address] PCP - General Family Medicine 11/06/24 documented as of this encounter
--- OUTSIDE RECORDS SUMMARY | 2025-02-21 07:02 | XMS_ITS | Clinical Summary ---
Author Organization [employer] ([place], [place], [place], [place]) Address [address] [place] [address] Care Team Providers Care Credit Correspondence Clerk Name Role Phone Moreno Mason MD Primary Care Provider [phone] Family History Medical History Relation Name Comments Breast cancer Sister Relation Name Status Comments Sister Alive Social History Tobacco Use Types Packs/Day Years [...] Date Johny rded Speak language other than Canadian at home Not on file 05/26/2023 Want [...] PM CDT Sexual Orientation Not on file Last Filed Vital Signs Vital Sign Reading Time Taken Comments Blood Pressure - - Pulse - - Temperature - - Respiratory Rate - - Oxygen Saturation - - Inhaled Oxygen Concentration - - Weight 63.5 kg (140 lb) 11/06/2024 8:17 AM EDT Height 160 cm (5' 3 ) 11/06/2024 8:17 AM EDT Body Mass Index 24.8 11/06/2024 8:17 AM EDT Plan of Treatment Upcoming Encounters Date Type Department Care Team (Late st Contact Info) Description 11/11/2025 7:45 AM EDT Appointment [address] [phone] Health Maintenance Due Date Last Done Comments CT Colonography 1957 Colonoscopy 1957 Colorectal Cancer Screening 1957 DXA SCAN 1957 FOBT/FIT 1957 Fit-DNA (Cologuard) 1957 Sigmoidoscopy 1957 Depression Screening (12+) 1969 Tobacco Cessation Counseling and Screening (12+) 1969 Hepatitis C Screening 1975 DTAP/TDAP/TD VACCINES (1 - Tdap) 1976 Pneumococcal 50+ years (1 of 1 - PCV) 2007 Shingles Vaccine (Zoster) (1 of 2) 2007 Falls Risk Screening 05/08/2024 COVID-19 VACCINE (5 - 2024-2 6 season) 2025 04/07/2022, 03/23/2021, 07/31/2020, Additional history exists Influenza Vaccine (#1) 2025 03/23/2021 Breast Cancer Screening 11/06/2026 11/07/19 25, 10/25/2023, 11/01/2022, Additional history exists Respiratory Syncytial Virus (RSV) Adult or (1 - 1-dose 75+ series) 2032 Procedures Procedure Name Priority Date/Time Associated Diagnosis Comments MM DIGITAL MAMMO SCREEN WITH ИВАН BILATERAL Routine 11/06/2024 8:19 AM EDT Visit for screening mammogram from Last 3 Months or Most Recently Relevant to Health Maintenance Results * MM digital mammo screen with иван bilateral (11/06/2024 8:19 AM EDT) Anatomical Region Laterality Modality Breast Bilateral Mammography 11/06/2024 11:0 8 AM EDT Impressions 11/06/2024 11:12 AM EDT FINAL IMPRESSION: Stable mammogram. No findings suspicious for malignancy. Bi-RADS: ACR BI-RADS 2: Benign RECOMMENDATIONS: Annual screening mammography. This report will serve as the order for the recommended imaging studies/procedures. A letter including results and recommendations was sent to the patient. Density notification was included for all patients. Patient information was entered into a reminder system with a target due date for the next mammogram. At our facility, a [place] marker is positioned over a visible skin [...] deferred because of a normal mammogram report. Narrative 11/06/2024 11:12 AM EDT PROCEDURE: Digital screening mammogram with Digital Breast Tomosynthesis (DBT). REASON FOR EXAM: Routine screening. FAMILY HISTORY: Strong family history of breast cancer. COMPARISON STUDY: 2023 through 2019 from [facility] FINDINGS: Craniocaudal and mediolateral oblique images of both breasts were obtained in 2D and DBT modes. Synthesized views were reconstructed from DBT data. Breast parenchymal density: There are scattered areas of fibroglandular density. Scattered calcifications are present. Partially obscured masses in the lateral left breast are unchanged. There is no evidence of dominant mass, architectural distortion, or suspicious calcifications. The mammogram was interpreted with the benefit of computer aided detection (CAD). us Not In System Provider IMG MAMMOGRAPHY ORDERABLE S Final Result from Last 3 Months or Most Recently Relevant to Health Maintenance Insurance BLUE CROSS/BLUE SHIELD Care Teams Credit Correspondence Clerk Relationship Specialty Start Date End Date Moreno Mason MD [address] [place] [address] PCP - General Family Medicine 11/06/24
--- OUTSIDE RECORDS SUMMARY | 2025-02-21 07:02 | XMS_ITS | Referral Summary ---
Author Organization [employer] ([place], [place], [place], [place]) Address [address] [place] [address] Care Team Providers Care Vice President Global Advertising Sales Name Role Phone Moreno Mason MD Primary Care Provider [phone] Social History Tobacco Use Types Packs/Day Years [...] Date Johny rded Speak language other than Omani at home Not on file 05/26/2023 Want [...] Encounters Date Type Department Care Team (Late Contact Info) Description 11/11/2025 7:45 AM EDT Appointment [facility] [address] [facility] [address] [place] [phone] Procedures Procedure Name Priority Date/Time Associated Diagnosis [...] the next mammogram. At our facility, a [place] marker is positioned over a visible skin [...] cancer. COMPARISON STUDY: 2023 through 2019 from [facility] FINDINGS: Craniocaudal and mediolateral oblique images of [...] Maintenance Insurance BLUE CROSS/BLUE SHIELD Care Teams Vice President Global Advertising Sales Relationship Specialty Start Date End Date Moreno [place] MD [address] [facility] [address] [place] [address] PCP - General Family Medicine 11/06/24
--- OUTSIDE RECORDS SUMMARY | 2025-02-21 07:02 | XMS_ITS | Data Portability ---
Author Organization [facility] JUSTIN Zhao KISSIMMEE CLOSED Address [address] [facility] [address] [place] [address] Assessment Encounter Date Assessment Date Assessment LastModified by Organization Details LastModified Time 03/01/2022 03/01/2022 A: 1. URI/bronchitis, worsening >1 week 2. PND P: 1. Nasacort; 2 sprays each nostril daily. Pt instructed on proper technique. 2. Cetirizine (zyrtec) 10mg once daily. 3. Rx promethazine DM: 10ml at bedtime as needed for cough. Caution causes drowsiness. 4.rx azithromycin as directed Return to clinic if not improving in 3-5 days, sooner if worse. [email or web address] Not available 03/01/2022 12:09:11 Plan of Treatment Reminders Order Date Submit Date Provider Last Modified By Organization Details Last Modified Time Details Appointments None recorded . Lab influenz a virus A + B + SARS-CoV -2 (COVID19 ) Ag panel, rapid IA, upper respirat ory specimen 2021 KIRAN Not available 3 05:02:13 rapid strep group A, throat 2021 [email or web address] Not available 08:40:36 Referral None recorded . Procedures None recorded . Surgeries None recorded . Imaging None recorded . Medication Orders azithrom ycin 250 mg tablet 2021 [id number], [address] [place], [address], 08:40:22 prometha zine-DM 6.25 mg-15 mg/5 mL oral syrup 2021 022 KIRAN [facility] [id number], [address] [place], [address], 11:17:21 Patient TargetsNo targets recorded. Patient InstructionsNo instructions recorded. Reason for Referral None Reported. Results Created Date Observation Date Name Description Value Unit Range Abnormal Flag Note LastModifiedBy Organization Detail LastModifiedTime 03/01/2003/01/2022 rapid strep group A, throa t Strep negati ve Not Available [facility] [address], [address], 03/01/2022 08:32:48 03/01/20 22 03/01/2022 rapid strep group A, throa t QC Okay Not Available [facility] [address], [address], 03/01/2022 08:32:48 03/01/20 22 03/01/2022 influ stephanie virus A + B + SARS- CoV-2 (COVI D19) Ag panel , rapid IA, upper respi rator y speci men Unknown Analyte negati ve Not Available [facility] [address], [address], 03/01/2022 08:32:28 03/01/20 22 03/01/2022 influ stephanie virus A + B + SARS- CoV-2 (COVI D19) Ag panel , rapid IA, upper respi rator y speci men Unknown Analyte negati ve Not Available [facility] [place] [address] [place] [address], [phone], 03/01/2022 08:32:28 03/01/20 22 03/01/2022 influ stephanie virus A + B + SARS- CoV-2 (COVI D19) Ag panel , rapid IA, upper respi rator y speci men Unknown Analyte negati ve Not Available [facility] [place] [address] [place], [address], 03/01/2022 08:32:28 03/01/2003/01/2022 influ stephanie virus A + B + SARS- CoV-2 (COVI D19) Ag panel , rapid IA, upper respi rator y speci men Unknown Analyte OKAY Not Available [facility] [place] [address] [place], [address], 03/01/2022 08:32:28 Result Notes None recorded. Medical Equipment None Reported. Allergies No known drug allergies Medications Name Sig Start Date Stop Date Status Note LastModified by Organization Details LastModified Time promethazine-D M 6.25 mg-15 mg/5 mL oral syrup Take 10 mL as needed by oral route at bedtime for 12 days. 2021 active Not Available Not Available Not Avai lable azithromycin 250 mg tablet TAKE 2 TABLETS (500 MG) BY ORAL ROUTE ONCE DAILY FOR 1 DAY THEN 1 TABLET (250 MG) BY ORAL ROUTE ONCE DAILY FOR 4 DAYS 2021 active Not Available Not Available Not Avai lable Vitals Date Recorded Body weight Body temperature Heart rate Respiratory rate Oxygen saturation Oxygen saturation in Arterial blood by Pulse oximetry Systolic And Diastolic Provider Name and Address Organization Details Last Updated DateTime 2 39480.3 4 g 98.3 [degF] 58 /min 16 /min 99 % 99 % 128/66 mm[Hg] Parker mancilla [facility] 2 08:14:07 Social History Question Answer Notes LastModified by Organizat ion Details LastModified Time What Was The Date Of Your Most Recent Tobacco Screening? 03/01/2022 [email or web address] Information not available 03/01/2022 Sex: Unknown Functional Status None recorded. Mental Status None recorded. Family History Nothing Reported. Medical History No medical history recorded. Gynecological HistoryNo gynecological history recorded. Obstetrics History GPAL:G 0 P 0 0 0 0 Past Encounters Encounter ID Performer Location Encounter Start Date Encounter Closed Date Diagnosis/Indication Diagnosis SNOMED-CT Code Diagnosis ICD10 Code Diagnosis IMO Codes Diagnosis Note [id number] [facility] [address] 08/08/2016 22:57:02 08/08/2016 22:57:02 [id number] MARZENA YAN PA-C [facility] [address] [place] [address] 03/01/2022 07:53:22 03/01/2022 12:21:16 Acute upper respiratory infection 17904233 J06.9 Health Concerns Section Related Observation LastModified by Organization Detai ls LastModified Time None Recorded Concern Status LastModified by Organization Details LastModified Time None Recorded Advance Directives Directive None Recorded Payers Insurance Date Sequence Insurance Name Policy Number Policy Mendez Covered Member ID Mendez Member ID Guarantor Name 03/08/2022 1 [employer] (PPO) [id number] Jihan Starkey [id number] Jihan Starkey Notes Date Note Type Note Provider Name and Address Organization Details Recorded Time 03/01/2022 text/html ROS as noted in the HPI Symptoms started about a wk ago. Cough, headach, tired, PND, Sore throat, green/mucus. Dry cough 1 week ago, now with chest congestion, ST, PND, nasal congestion.Denies f/s/c/aches, wheeze, soa, sinus or ear pain. Admits ear pressure. Cough suppressant and nyquil, coricidin, IB have not helped. tried mucinex nose spray. MARZENA YAN PA-C [address] [place], [address], [facility] 03/01/2022 12:09:29 OBGyn Episode No OBEpisode recorded.
[2025-02-21 07:27] LABS: Hematocrit 41.7 % (37.0-47.0); Hemoglobin 13.3 g/dL (12.2-16.2); Immature Granulocytes % 0.3 %; Mean Corpuscular HGB Conc 31.9 g/dL (31.8-35.4); Mean Corpuscular Hemoglobin 31.9 pg (27.0-31.2); Mean Corpuscular Volume 100.0 fl (81-99); Nucleated Red Blood Cells % 0 %; Platelet Count 384 K/mm3 (142-424); Red Blood Count 4.17 M/mm3 (4.20-5.40); Red Cell Distribution Width-SD 47.9 fL; White Blood Count 6.4 K/mm3 (4.8-10.8)
[2025-02-21 08:23] LABS: Albumin Level 3.7 g/dl (3.5-5.0); Chloride 107 mmol/L (98-107); Sodium 138 mmol/L (136-145)
[2025-02-21 08:24] LABS: Potassium 4.5 mmoL/L (3.5-5.1)
[2025-02-21 08:26] LABS: Alanine Aminotransferase 16 U/L (12-78); Albumin/Globulin Ratio 1.4 (1.1-1.8); Anion Gap 8.5 mEq/L (5-15); Aspartate Amino Transferase 26 U/L (14-36); Blood Urea Nitrogen 15 mg/dl (7-17); Carbon Dioxide 27 mmol/L (22.0-30.0); Creatinine,Serum 0.80 mg/dl (0.52-1.04); Estimated Glomerular Filt Rate 72 ml/min (>60); GFR (African American) 87 ML/MIN (>60); Globulin 2.7 g/dL (1.3-3.2); Total Protein,Serum 6.4 g/dl (6.3-8.2)
[2025-02-21 08:27] LABS: Alkaline Phosphatase 88 U/L (38-126); Bilirubin,Total 0.5 mg/dl (0.2-1.3); Calcium 8.6 mg/dl (8.4-10.2); Cholesterol 194 mg/dl (140-200); Glucose 84 mg/dl (74-100); HDL Cholesterol 82 mg/dl (40-60); Triglycerides 83 mg/dl (30-150)
[2025-02-21 08:43] LABS: T4 (Thyroxine) 8.1 ug/dl (5.53-11.0)
[2025-02-21 08:57] LABS: Thyroid Stimulating Hormone 5.17 uIU/mL (0.465-4.68)
== END 2025-02-21 23:59 | disposition home or self-care (01) ==
LOC: LAB 06:59
PROVIDERS: PCP Nurse Practitioner Family; Visit Provider Nurse Practitioner Family
DX: E03.9 Hypothyroidism, unspecified (principal); E78.5 Hyperlipidemia, unspecified; I10 Essential (primary) hypertension
CPT/HCPCS: 36415; 80053; 80061; 82043; 82570; 84436; 84443; 85025